=== PATIENT | female | born 1955 | race African-American/Black ===

== ENCOUNTER 2024-03-03 15:20 | Emergency (ER) | payer OTHER ==
[2024-03-03 15:26] VITALS: BP 146/74; PULSE 84; RESP 18; TEMP 98.4; BMI 37.0
[2024-03-03] MEDS ORDERED: MECLIZINE HCL 25 MG TABLET (FP) ONE (16:07)
[2024-03-03] MEDS ORDERED: METOCLOPRAMIDE HCL INJECTION 10 MG/2 ML VIAL ONE (16:08)
[2024-03-03] MEDS ORDERED: ACETAMINOPHEN INJECTION 100 ML IVPB ONE (16:08)
[2024-03-03] MEDS: ACETAMINOPHEN 1000 MG/100 ML BAG IVPB ONE (16:10)
[2024-03-03] MEDS: METOCLOPRAMIDE HCL INJECTION 10 MG/2 ML VIAL IVPB ONE (16:10)
[2024-03-03] MEDS: LACTATED RINGERS SOLUTION 1000 ML INFUS.BAG IV ONE ×2 (16:10→16:28)
[2024-03-03] MEDS ORDERED: ONDANSETRON *ODT* 4 MG TABLET ONE (16:12)
[2024-03-03] MEDS ORDERED: ACETAMINOPHEN 325 MG TABLET (FP) ONE (16:12)
[2024-03-03] MEDS ORDERED: diazePAM 2 MG TABLET ONE (16:20)
[2024-03-03] MEDS: METOCLOPRAMIDE HCL INJECTION 10 MG/2 ML VIAL IVPUSH ONE (16:28)
[2024-03-03] MEDS: MECLIZINE HCL 25 MG TABLET (FP) PO ONE (16:28)
[2024-03-03] MEDS: ONDANSETRON *ODT* 4 MG TABLET SL ONE (16:29)
[2024-03-03] MEDS: ACETAMINOPHEN 325 MG TABLET (FP) PO ONE (16:29)
[2024-03-03] MEDS: diazePAM 2 MG TABLET PO ONE (16:29)
== END 2024-03-03 18:16 | disposition home or self-care (01) ==
LOC: JER 15:20
PROC: 3E033GC Introduction of Other Therapeutic Substance into Peripheral Vein, Percutaneous Approach (ICD-10-PCS; principal; 2024-03-03)
DX: R42 Dizziness and giddiness (principal); H49.01 Third [oculomotor] nerve palsy, right eye; R11.0 Nausea
CPT/HCPCS: 93005; 93010; 99284-25